=== PATIENT | female | born 1995 | race American Indian/Alaskan Native ===

== ENCOUNTER 2018-10-19 12:45 | Emergency (ER) | payer OTHER, MEDICARE ==
[2018-10-19 13:20] VITALS: BP 107/71
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
== END 2018-10-19 13:48 | disposition home or self-care (01) ==
LOC: ED 12:45
DX: S70.11XA Contusion of right thigh, initial encounter (principal); R10.2 Pelvic and perineal pain; V03.99XA Pedestrian with other conveyance injured in collision with car, pick-up truck or van, unspecified whether traffic or nontraffic accident, initial encounter; Y93.89 Activity, other specified; Y92.410 Unspecified street and highway as the place of occurrence of the external cause; Y99.8 Other external cause status
CPT/HCPCS: 99282